=== PATIENT | female | born 1960 | race Caucasian/White ===

== ENCOUNTER 2019-07-22 14:04 | Day surgery (SDC) | payer BC, MEDICARE ==
[2019-07-22] MEDS ORDERED: Sodium Chloride 0.9(Preservative Free) 10 ML IJ ONE (14:05)
[2019-07-22] MEDS ORDERED: Depo-Medrol 40 MG/ML IM ONE (14:05)
[2019-07-22] MEDS ORDERED: Xylocaine 1% Vial 30 ML PF IJ ONE (14:05)
[2019-07-22] MEDS ORDERED: Ketamine HCl 50 MG/ML ONE (15:05)
[2019-07-22] MEDS ORDERED: DIPRIVAN 200 MG/20 ML IV ONE (15:05)
[2019-07-22] MEDS ORDERED: Lactated Ringers 1,000 ML IV ONE (15:57)
--- NOTE | 2019-07-22 17:03 | XRAY ---
Indication: Lumbar TUTU. Intraoperative fluoroscopy was provided for 18 seconds. 3 digital spot images submitted for interpretation demonstrates midline posterior needle tip projecting just posterior to the lumbosacral disc space. Small amount of contrast injected for needle tip placement. Correlate with intraoperative findings/report.
--- NOTE | 2019-07-22 17:08 | XRAY ---
18 seconds fluoroscopy time in surgery for lumbar TUTU.
== END 2019-07-22 15:42 | disposition home or self-care (01) ==
LOC: SDC-PAIN 14:04
PROVIDERS: ATTEND Psychiatry & Neurology Pain Medicine
DX: M54.16 Radiculopathy, lumbar region (principal); M79.7 Fibromyalgia; E03.9 Hypothyroidism, unspecified; F41.8 Other specified anxiety disorders; Z79.899 Other long term (current) drug therapy
CPT/HCPCS: 62323; 72100; 77003; J1030; J2001; J2704; Q9966

== ENCOUNTER 2019-11-18 12:08 | Day surgery (SDC) | payer MEDICARE ==
[2019-11-18] MEDS ORDERED: Xylocaine 1% Vial 30 ML PF IJ ONE (12:09)
[2019-11-18] MEDS ORDERED: Sodium Chloride 0.9(Preservative Free) 10 ML IJ ONE (12:09)
[2019-11-18] MEDS ORDERED: Depo-Medrol 40 MG/ML IM ONE (12:09)
--- NOTE | 2019-11-18 14:46 | XRAY ---
Indication: Lumbar TUTU. Intraoperative fluoroscopy was provided for 26 seconds. 2 digital spot images submitted for interpretation demonstrates midline posterior needle tip projecting just posterior to the lumbosacral disc space. Small amount of contrast injected for needle tip placement. Correlate with intraoperative findings/report.
--- NOTE | 2019-11-18 15:16 | XRAY ---
26 seconds fluoroscopy time in surgery for lumbar TUTU.
== END 2019-11-18 14:08 | disposition home or self-care (01) ==
LOC: SDC-PAIN 12:08
PROVIDERS: ATTEND Psychiatry & Neurology Pain Medicine
DX: M54.16 Radiculopathy, lumbar region (principal); M79.7 Fibromyalgia; E03.9 Hypothyroidism, unspecified; F41.8 Other specified anxiety disorders; Z79.899 Other long term (current) drug therapy
CPT/HCPCS: 62323; 72100; 77003; J1030; J2001; Q9966